=== PATIENT | male | born 1980 | race Two or more races ===

== ENCOUNTER 2017-07-24 12:41 | Outpatient (CLI) | payer OTHER ==
--- NOTE | 2017-07-26 17:20 | MRI Report ---
EXAM: RIGHT SHOULDER MRI WITHOUT CONTRAST EXAM DATE: 07/24/2017 02:12 PM. CLINICAL HISTORY: Right shoulder pain for 1.5 months. Posterior-superior shoulder pain. COMPARISON: None. TECHNIQUE: Multiplanar, multisequence T1-weighted and fluid-sensitive sequences of the shoulder witho ut contrast. Other: None. FINDINGS: Acromioclavicular Region: The acromion is type II. Small fluid collection acromioclavicular joint. Re active marrow edema and subcortical cystic degenerative changes distal clavicle acromioclavicular melody nt. The coracoacromial and coracoclavicular ligaments are intact. No subacromial/subdeltoid bursal fl uid. Glenohumeral Region: No subluxation. No effusion or loose bodies. The articular cartilage is unremark able. The glenohumeral ligaments and joint capsule are unremarkable. Bone Marrow: No fracture, marrow edema or bone lesions. Labrum: Superior labrum tear. Musculature/Rotator Cuff: Negative for complete rotator cuff tear. Intermediate signal with enlargeme nt distal infraspinatus tendon 1.6 cm in transverse dimension 1.1 cm in AP dimension. Negative for fl uid signal supraspinatus tendon tear. Negative for fluid signal subscapularis tendon tear. There is e taurus of the supraspinatus and infraspinatus muscles sparing the teres minor muscle and the subscapula ris muscle. Findings suggest neurogenic edema. There is no mass identified at the suprascapular notch and spinoglenoid notch. Biceps Tendon: The long head of the biceps tendon and biceps jason are intact. Other: The subcutaneous tissues are unremarkable. IMPRESSION: 1. Superior labrum tear or SLAP lesion. 2. Negative for complete rotator cuff tear. 3. Distal infraspinatus tendinitis. 4. Diffuse edema is noted of the supraspinatus and infraspinatus muscles suggestive of neurogenic kerri ma with no mass identified at the suprascapular notch or spinoglenoid notch to suggest nerve impingem ent. 5. Mild arthrosis acromioclavicular joint. [facility] MUSCULOSKELETAL RADIOLOGY SECTION Referring Provider Line: [phone] SITE ID: [id number]
== END 2017-07-24 12:42 | disposition home or self-care (01) ==
LOC: DI 12:41
PROVIDERS: ATTEND Orthopaedic Surgery
DX: S43.431A Superior glenoid labrum lesion of right shoulder, initial encounter (principal); M75.81 Other shoulder lesions, right shoulder; R60.0 Localized edema